=== PATIENT | male | born 1945 | race Caucasian/White ===

== ENCOUNTER → 2016-02-29 | Outpatient (CLI) | payer MEDICARE | LOC: PCVCCLINIC 10:00 | PROVIDERS: ATTEND Internal Medicine | DX: I25.10 Atherosclerotic heart disease of native coronary artery without angina pectoris (principal); Z95.2 Presence of prosthetic heart valve | CPT/HCPCS: 85610 ==

== ENCOUNTER → 2016-04-10 | Outpatient (CLI) | payer MEDICARE | END | disposition home or self-care (01) | LOC: PCVCCLINIC 10:41 | PROVIDERS: ATTEND Internal Medicine | DX: I25.10 Atherosclerotic heart disease of native coronary artery without angina pectoris (principal); Z95.2 Presence of prosthetic heart valve | CPT/HCPCS: 85610 ==

== ENCOUNTER → 2016-04-12 | Outpatient (CLI) | payer MEDICARE | END | disposition home or self-care (01) | LOC: PCVCCLINIC 11:50 | PROVIDERS: ATTEND Internal Medicine | DX: Z95.2 Presence of prosthetic heart valve (principal) | CPT/HCPCS: 85610 ==

== ENCOUNTER → 2016-04-17 | Outpatient (CLI) | payer MEDICARE | END | disposition home or self-care (01) | LOC: PCVCCLINIC 08:50 | PROVIDERS: ATTEND Internal Medicine | DX: Z95.2 Presence of prosthetic heart valve (principal) | CPT/HCPCS: 85610 ==

== ENCOUNTER → 2016-04-24 | Outpatient (CLI) | payer MEDICARE | END | disposition home or self-care (01) | LOC: PCVCCLINIC 09:34 | PROVIDERS: ATTEND Internal Medicine | DX: I25.10 Atherosclerotic heart disease of native coronary artery without angina pectoris (principal); Z95.2 Presence of prosthetic heart valve | CPT/HCPCS: 85610 ==

== ENCOUNTER → 2016-05-01 | Outpatient (CLI) | payer MEDICARE | END | disposition home or self-care (01) | LOC: PCVCCLINIC 09:46 | PROVIDERS: ATTEND Internal Medicine | DX: Z95.2 Presence of prosthetic heart valve (principal) | CPT/HCPCS: 85610; G0463 ==

== ENCOUNTER → 2016-05-15 | Outpatient (CLI) | payer MEDICARE | END | disposition home or self-care (01) | LOC: PCVCCLINIC 09:00 | PROVIDERS: ATTEND Internal Medicine | DX: Z95.2 Presence of prosthetic heart valve (principal); I25.10 Atherosclerotic heart disease of native coronary artery without angina pectoris | CPT/HCPCS: 85610; G0463 ==

== ENCOUNTER → 2016-06-15 | Outpatient (CLI) | payer MEDICARE | END | disposition home or self-care (01) | LOC: PCVCCLINIC 09:00 | PROVIDERS: ATTEND Internal Medicine | DX: Z95.2 Presence of prosthetic heart valve (principal) | CPT/HCPCS: 85610 ==

== ENCOUNTER → 2016-06-23 | Outpatient (CLI) | payer MEDICARE | END | disposition home or self-care (01) | LOC: PCVCCLINIC 08:50 | PROVIDERS: ATTEND Internal Medicine | DX: Z95.2 Presence of prosthetic heart valve (principal) | CPT/HCPCS: 85610 ==

== ENCOUNTER → 2016-07-07 | Outpatient (CLI) | payer MEDICARE | END | disposition home or self-care (01) | LOC: PCVCCLINIC 10:19 | PROVIDERS: ATTEND Internal Medicine | DX: I65.23 Occlusion and stenosis of bilateral carotid arteries (principal); I11.0 Hypertensive heart disease with heart failure; I50.9 Heart failure, unspecified; J44.9 Chronic obstructive pulmonary disease, unspecified; I25.10 Atherosclerotic heart disease of native coronary artery without angina pectoris; E78.00 Pure hypercholesterolemia, unspecified; K21.9 Gastro-esophageal reflux disease without esophagitis; E78.5 Hyperlipidemia, unspecified; C34.90 Malignant neoplasm of unspecified part of unspecified bronchus or lung; Z95.2 Presence of prosthetic heart valve; Z79.01 Long term (current) use of anticoagulants | CPT/HCPCS: 85610; 93005 ==

== ENCOUNTER → 2016-08-02 | Outpatient (CLI) | payer MEDICARE ==
--- NOTE | 2016-08-02 11:14 | PCVCIMAG ---
APPROVED REPORT Patient Location: Out-Patient Indications Stenosis Risk Factors Hypertension: Doppler Spectral Velocity Analysis PSV / EDVPSV / EDV ECA (R) 130 / 17 cm/sECA (L) 75 / 14 cm/s dICA (R) 53 / 20 cm/sdICA (L) 51 / 20 cm/s Nelson (R) 67 / 22 cm/smICA (L) 55 / 19 cm/s pICA (R) 93 / 17 cm/spICA (L) 75 / 24 cm/s Bulb (R) 72 / 21 cm/sBulb (L) 69 / 17 cm/s dCCA (R) 82 / 19 cm/sdCCA (L) 70 / 22 cm/s mCCA (R) 92 / 26 cm/smCCA (L) 85 / 17 cm/s Vert (R) 42 / 9 cm/sVert (L) 72 / 22 cm/s ICA/CCA 1.13ICA/CCA 1.07 Basic Measurements Blood Pressure: Pulses: Right Left RightLeft Brachial(Sitting) 108/22uaRt68/68mmHgTemporal Real Time B-Mode Imaging AreaRight Plaque DescriptionLeft Plaque Description VertebralAntegradeAntegrade Findings The right carotid bulb has moderate calcified plaque. The right proximal internal carotid artery shows <40% stenosis. The right external carotid artery shows no significant stenosis. The left carotid bulb has moderate calcified plaque. The left proximal internal carotid artery shows <40% stenosis. The right external carotid artery shows no significant stenosis. The left carotid bulb has plaque. The left proximal internal carotid artery shows stenosis. The left common carotid artery shows stenosis. The right external carotid artery shows stenosis. Conclusion 1. Right internal carotid artery stenosis (<40%) 2. Left internal carotid artery stenosis (<40%) 3. Antegrade vertebral flow
== END | disposition home or self-care (01) ==
LOC: PCVCIMAG 09:19
PROVIDERS: ATTEND Internal Medicine
DX: I65.23 Occlusion and stenosis of bilateral carotid arteries (principal); I10 Essential (primary) hypertension; I25.5 Ischemic cardiomyopathy; I50.9 Heart failure, unspecified; I25.10 Atherosclerotic heart disease of native coronary artery without angina pectoris; C34.92 Malignant neoplasm of unspecified part of left bronchus or lung; E78.5 Hyperlipidemia, unspecified; Z79.01 Long term (current) use of anticoagulants; Z95.2 Presence of prosthetic heart valve
CPT/HCPCS: 80061; 93005; 93880; G0463

== ENCOUNTER → 2016-08-09 | Outpatient (CLI) | payer MEDICARE | END | disposition home or self-care (01) | LOC: PCVCCLINIC 09:57 | PROVIDERS: ATTEND Internal Medicine | DX: I11.0 Hypertensive heart disease with heart failure (principal); I50.9 Heart failure, unspecified; J44.9 Chronic obstructive pulmonary disease, unspecified; C34.90 Malignant neoplasm of unspecified part of unspecified bronchus or lung; I25.10 Atherosclerotic heart disease of native coronary artery without angina pectoris; E78.00 Pure hypercholesterolemia, unspecified; I65.29 Occlusion and stenosis of unspecified carotid artery; E78.5 Hyperlipidemia, unspecified; Z95.2 Presence of prosthetic heart valve; Z79.01 Long term (current) use of anticoagulants | CPT/HCPCS: 85610 ==

== ENCOUNTER → 2016-08-16 | Outpatient (CLI) | payer MEDICARE | END | disposition home or self-care (01) | LOC: PCVCCLINIC 09:23 | PROVIDERS: ATTEND Internal Medicine | DX: I50.9 Heart failure, unspecified (principal); J44.9 Chronic obstructive pulmonary disease, unspecified; I25.10 Atherosclerotic heart disease of native coronary artery without angina pectoris; E78.00 Pure hypercholesterolemia, unspecified; Z95.2 Presence of prosthetic heart valve | CPT/HCPCS: 85610 ==

== ENCOUNTER → 2017-02-05 | Outpatient (CLI) | payer MEDICARE ==
--- NOTE | 2017-02-05 12:37 | PCVCIMAG ---
APPROVED REPORT Study performed: 02/05/2017 09:32:47 EXAM: Comprehensive 2D, Doppler, and color-flow Echocardiogram Patient Location: Echo lab Status: routine BSA: 1.88 HR: 59 bpmBP: 100/60 mmHg Rhythm: NSR Other Information Study Quality: Adequate Indications CABG, #[address] [place] MVR, Ischemic cardiomyopathy, 2D Dimensions LVEF(%): 49.28 (>50%) IVSd: 10.29 (7-11mm)LVOT Diam: 21.62 (18-24mm) LVDd: 51.13 mm PWd: 12.00 (7-11mm)Ascending Ao: 32.38 (22-36mm) LVDs: 38.31 (25-40mm) Left Atrium: 45.59 (27-40mm) Aortic Root: 27.88 mm Russo's LVEF: 49.28 % Volumes Left Atrial Volume (Systole) Single Plane 4CH: 72.18 mLSingle Plane 2CH: 87.32 mL LA ESV Index: 44.00 mL/m2 Aortic Valve AoV Peak Ra.: 1.39 m/s AO Peak Gr.: 7.70 mmHgLVOT Max P.26 mmHg LVOT Max V: 1.15 m/s RADHA Vmax: 3.03 cm2 Mitral Valve MV Peak Gr.: 8.83 mmHg MV Mean Gr.: 3.61 mmHg MV Decel. Time: 307.28 ms MV Max Ra.: 1.49 m/s MV Mean Ra.: 0.87 m/s MV VTI: 505.13 mm MV PHT: 129.89 ms MVA (PHT): 1.69 cm2 IVRT: 162.63 ms TDI Medial E' Ra.: 0.04 m/s Lateral E' Ra.: 0.08 m/s Pulmonary Valve PV Peak Gr.: 1.72 mmHg Tricuspid Valve TR Peak Ra.: 1.60 m/s TR Peak Gr.: 10.28 mmHg Left Ventricle Left ventricle is mildly dilated. Akinesis of basal to mid inferolateral and inferoseptal kaur There is normal left ventricular wall thickness. Left ventricular systolic function is mild to moderately decreased. LVEF 45%. Unable to assess Right Ventricle The right ventricle is normal size. The right ventricular systolic function is normal. Atria Left atrium is mildly dilated. The right atrium size is normal. Aortic Valve The aortic valve is normal in structure. No aortic regurgitation is present. There is no aortic valvular stenosis. Mitral Valve #29 [facility] Mitral Valve Replacment. Max gradient 8mHg. Mean gradient 4mmHg. There is no mitral valve regurgitation noted. No evidence of mitral valve stenosis. Tricuspid Valve The tricuspid valve is normal in structure. There is no tricuspid valve regurgitation noted. Pulmonic Valve The pulmonary valve is normal in structure. There is no pulmonic valvular regurgitation. Great Vessels The aortic root is normal in size. IVC is normal in size and collapses with >50% inspiration Pericardium There is no pericardial effusion. <Conclusion> Left ventricular systolic function is mild to moderately decreased. Akinesis of basal to mid inferolateral and inferoseptal kaur LVEF 45%. Left atrium is mildly dilated. The aortic valve is normal in structure. No aortic regurgitation or stenosis. #29 [place] mechanical mitral Valve replacment. Max gradient 8mHg. Mean gradient 4mmHg. There is no mitral valve regurgitation noted. Pulmonary artery pressure could not be reliably ascertained There is no pericardial effusion.
== END | disposition home or self-care (01) ==
LOC: PCVCIMAG 09:14
PROVIDERS: ATTEND Internal Medicine
DX: I25.10 Atherosclerotic heart disease of native coronary artery without angina pectoris (principal); I25.5 Ischemic cardiomyopathy; I11.0 Hypertensive heart disease with heart failure; I50.22 Chronic systolic (congestive) heart failure; E78.5 Hyperlipidemia, unspecified; I65.23 Occlusion and stenosis of bilateral carotid arteries; R00.1 Bradycardia, unspecified; R94.31 Abnormal electrocardiogram [ECG] [EKG]; C34.92 Malignant neoplasm of unspecified part of left bronchus or lung; Z95.2 Presence of prosthetic heart valve; Z87.891 Personal history of nicotine dependence; Z79.899 Other long term (current) drug therapy; Z79.82 Long term (current) use of aspirin
CPT/HCPCS: 80061; 93005; 93306; G0463

== ENCOUNTER → 2017-08-08 | Outpatient (CLI) | payer MEDICARE | END | disposition home or self-care (01) | LOC: PCVCIMAG 08:48 | DX: I65.23 Occlusion and stenosis of bilateral carotid arteries (principal); I25.5 Ischemic cardiomyopathy; I11.0 Hypertensive heart disease with heart failure; I50.22 Chronic systolic (congestive) heart failure; E78.5 Hyperlipidemia, unspecified; C34.92 Malignant neoplasm of unspecified part of left bronchus or lung; Z95.2 Presence of prosthetic heart valve; Z79.891 Long term (current) use of opiate analgesic; Z79.899 Other long term (current) drug therapy | CPT/HCPCS: 93005; 93880; G0463 ==

== ENCOUNTER → 2017-12-10 | Outpatient (CLI) | payer MEDICARE | END | disposition home or self-care (01) | LOC: PCVCCLINIC 10:00 | PROVIDERS: ATTEND Internal Medicine | DX: Z51.81 Encounter for therapeutic drug level monitoring (principal); J44.9 Chronic obstructive pulmonary disease, unspecified; I25.10 Atherosclerotic heart disease of native coronary artery without angina pectoris; I50.9 Heart failure, unspecified; E78.00 Pure hypercholesterolemia, unspecified; E78.5 Hyperlipidemia, unspecified; Z95.2 Presence of prosthetic heart valve; Z79.01 Long term (current) use of anticoagulants | CPT/HCPCS: 85610 ==

== ENCOUNTER → 2017-12-14 | Outpatient (CLI) | payer MEDICARE | END | disposition home or self-care (01) | LOC: PCVCCLINIC 09:00 | PROVIDERS: ATTEND Internal Medicine | DX: Z51.81 Encounter for therapeutic drug level monitoring (principal); I11.0 Hypertensive heart disease with heart failure; I50.9 Heart failure, unspecified; I25.10 Atherosclerotic heart disease of native coronary artery without angina pectoris; E78.00 Pure hypercholesterolemia, unspecified; E04.1 Nontoxic single thyroid nodule; Z79.01 Long term (current) use of anticoagulants; Z95.1 Presence of aortocoronary bypass graft | CPT/HCPCS: 85610 ==

== ENCOUNTER → 2018-01-03 | Outpatient (CLI) | payer MEDICARE | END | disposition home or self-care (01) | LOC: PCVCCLINIC 11:24 | PROVIDERS: ATTEND Internal Medicine | DX: Z51.81 Encounter for therapeutic drug level monitoring (principal); I50.9 Heart failure, unspecified; J44.9 Chronic obstructive pulmonary disease, unspecified; I25.10 Atherosclerotic heart disease of native coronary artery without angina pectoris; E78.00 Pure hypercholesterolemia, unspecified; E78.5 Hyperlipidemia, unspecified; E03.9 Hypothyroidism, unspecified; K21.9 Gastro-esophageal reflux disease without esophagitis; Z95.1 Presence of aortocoronary bypass graft; Z85.118 Personal history of other malignant neoplasm of bronchus and lung; Z95.2 Presence of prosthetic heart valve; Z79.01 Long term (current) use of anticoagulants | CPT/HCPCS: 36415; 85610 ==

== ENCOUNTER → 2018-01-10 | Outpatient (CLI) | payer MEDICARE | END | disposition home or self-care (01) | LOC: PCVCCLINIC 13:51 | PROVIDERS: ATTEND Internal Medicine | DX: Z51.81 Encounter for therapeutic drug level monitoring (principal); J44.9 Chronic obstructive pulmonary disease, unspecified; I25.10 Atherosclerotic heart disease of native coronary artery without angina pectoris; E78.00 Pure hypercholesterolemia, unspecified; E78.5 Hyperlipidemia, unspecified; I11.0 Hypertensive heart disease with heart failure; I50.9 Heart failure, unspecified; Z85.118 Personal history of other malignant neoplasm of bronchus and lung; Z95.1 Presence of aortocoronary bypass graft; Z79.01 Long term (current) use of anticoagulants | CPT/HCPCS: 36415; 85610 ==

== ENCOUNTER → 2018-02-07 | Outpatient (CLI) | payer MEDICARE ==
--- NOTE | 2018-02-07 12:40 | PCVCIMAG ---
APPROVED REPORT Study performed: 02/07/2018 09:57:07 EXAM: Comprehensive 2D, Doppler, and color-flow Echocardiogram Patient Location: Echo lab Status: routine BSA: 1.90 HR: 55 bpmBP: 118/70 mmHg Rhythm: NSR Other Information Study Quality: Adequate Risk Factors: Cardiac Risk Factors: Hyperlipidemia Indications CAD Cardiomyopathy CABG, #29 [place] Mitral Valve 2D Dimensions IVSd: 12.95 (7-11mm)LVOT Diam: 20.18 (18-24mm) LVDd: 38.39 mm PWd: 11.59 (7-11mm)Ascending Ao: 30.59 (22-36mm) LVDs: 32.16 (25-40mm) Left Atrium: 46.07 (27-40mm) Aortic Root: 25.16 mm LV Single Plane 4CH: 56.79 % LV Single Plane 2CH: 60.16 % Biplane EF: 58.1 % Volumes Left Atrial Volume (Systole) Single Plane 4CH: 90.29 mLSingle Plane 2CH: 66.18 mL LA ESV Index: 42.00 mL/m2 Aortic Valve AoV Peak Ra.: 1.44 m/s AO Peak Gr.: 8.32 mmHgLVOT Max P.52 mmHg LVOT Max V: 1.06 m/s RADHA Vmax: 2.36 cm2 Mitral Valve MV Peak Gr.: 6.84 mmHg MV Mean Gr.: 2.36 mmHgE/A Ratio: 0.7 MV Decel. Time: 313.89 ms MV E Max Ra.: 0.97 m/s MV A Ra.: 1.31 m/s MV Max Ra.: 1.31 m/s MV Mean Ra.: 0.71 m/s MV VTI: 394.55 mm MV PHT: 106.56 ms MVA (PHT): 2.06 cm2 IVRT: 183.39 ms TDI E/Lateral E': 13.86E/Medial E': 16.17 Medial E' Ra.: 0.06 m/s Lateral E' Ra.: 0.07 m/s Pulmonary Valve PV Peak Gr.: 2.37 mmHg Left Ventricle The left ventricle is normal size. Akinesis basal to mid inferolateral, inferoseptal kaur. There is normal left ventricular wall thickness. Left ventricular systolic function is mildly decreased. LVEF is 45-50%. This study is not technically sufficient to allow evaluation of the LV diastolic function. Right Ventricle The right ventricle is normal size. The right ventricular systolic function is normal. Atria The left atrium size is normal. The right atrium size is normal. Aortic Valve The aortic valve is mildly sclerotic. No aortic regurgitation is present. There is no aortic valvular stenosis. Mitral Valve #29 [place] Mitral Valve Replacement. Peak gradient 7mmHg. Mean 2mmHg. There is no mitral valve regurgitation noted. No evidence of mitral valve stenosis. Tricuspid Valve The tricuspid valve is normal in structure. There is no tricuspid valve regurgitation noted. Pulmonic Valve The pulmonary valve is normal in structure. There is no pulmonic valvular regurgitation. Great Vessels The aortic root is normal in size. IVC is normal in size and collapses >50% with inspiration. Pericardium There is no pericardial effusion. <Conclusion> Left ventricular systolic function is mildly decreased. LVEF is 45-50%. Akinesis basal to mid inferolateral, inferoseptal kaur. The aortic valve is mildly sclerotic. No aortic regurgitation or stenosis #[address] [place] Mitral Valve Replacement. Peak gradient 7mmHg. Mean 2mmHg. No mitral valve regurgitation. Pulmonary artery pressure could not be reliably ascertained There is no pericardial effusion.
== END | disposition home or self-care (01) ==
LOC: PCVCIMAG 10:03
PROVIDERS: ATTEND Internal Medicine
DX: I25.10 Atherosclerotic heart disease of native coronary artery without angina pectoris (principal); I25.5 Ischemic cardiomyopathy; I11.0 Hypertensive heart disease with heart failure; I50.22 Chronic systolic (congestive) heart failure; E78.5 Hyperlipidemia, unspecified; I65.23 Occlusion and stenosis of bilateral carotid arteries; C34.92 Malignant neoplasm of unspecified part of left bronchus or lung; J44.9 Chronic obstructive pulmonary disease, unspecified; K21.9 Gastro-esophageal reflux disease without esophagitis; Z95.2 Presence of prosthetic heart valve; Z79.82 Long term (current) use of aspirin; Z87.891 Personal history of nicotine dependence
CPT/HCPCS: 36415; 80061; 93005; 93306; G0463

== ENCOUNTER → 2018-08-15 | Outpatient (CLI) | payer MEDICARE ==
--- NOTE | 2018-08-15 10:19 | PCVCIMAG ---
APPROVED REPORT Indications Stenosis Risk Factors Hypertension: Hyperlipidemia Doppler Spectral Velocity Analysis PSV / EDVPSV / EDV ECA (R) 99 / 8 cm/sECA (L) 78 / 16 cm/s dICA (R) 55 / 21 cm/sdICA (L) 39 / 8 cm/s Nelson (R) 66 / 18 cm/smICA (L) 96 / 18 cm/s pICA (R) 73 / 17 cm/spICA (L) 65 / 14 cm/s Bulb (R) 69 / 13 cm/sBulb (L) 49 / 13 cm/s dCCA (R) 69 / 16 cm/sdCCA (L) 62 / 16 cm/s mCCA (R) 69 / 17 cm/smCCA (L) 73 / 19 cm/s Vert (R) 43 / 6 cm/sVert (L) 61 / 17 cm/s ICA/CCA 1.06ICA/CCA 1.55 ICA/CCA 1.32 Basic Measurements Blood Pressure: Pulses: Right Left RightLeft Brachial(Sitting) 114/45iqRt448/80mmHgTemporal Real Time B-Mode Imaging Vert. (R)AntegradeVert. (L)Antegrade Findings RIGHT CAROTID: The carotid bulb has moderate plaque. The proximal internal carotid artery shows <40% stenosis. The common carotid artery shows no significant stenosis. The external carotid artery shows no significant stenosis. LEFT CAROTID: The carotid bulb has moderate plaque. The proximal internal carotid artery shows <40% stenosis. The common carotid artery shows no significant stenosis. The external carotid artery shows no significant stenosis. Conclusion <40% stenosis of the right internal carotid artery with moderate plaque. <40% stenosis of the left internal carotid artery with moderate plaque. 1.2 x 1.1 x 2.0 cm solid nodule mid/lower right thyroid lobe unchanged since 2018 study.
== END | disposition home or self-care (01) ==
LOC: PCVCIMAG 09:45
PROVIDERS: ATTEND Internal Medicine
DX: I65.23 Occlusion and stenosis of bilateral carotid arteries (principal); I25.10 Atherosclerotic heart disease of native coronary artery without angina pectoris; I25.5 Ischemic cardiomyopathy; I11.0 Hypertensive heart disease with heart failure; I50.22 Chronic systolic (congestive) heart failure; E78.5 Hyperlipidemia, unspecified; C34.92 Malignant neoplasm of unspecified part of left bronchus or lung; K21.9 Gastro-esophageal reflux disease without esophagitis; Z95.2 Presence of prosthetic heart valve; Z79.82 Long term (current) use of aspirin
CPT/HCPCS: 36415; 80061; 93005; 93880; G0463

== ENCOUNTER → 2019-02-10 | Outpatient (CLI) | payer MEDICARE ==
--- NOTE | 2019-02-10 15:43 | PCVCIMAG ---
APPROVED REPORT Study performed: 02/10/2019 13:54:38 EXAM: Comprehensive 2D, Doppler, and color-flow Echocardiogram Patient Location: Echo lab Room #: 2Status: routine BSA: 1.89 HR: 48 bpm Rhythm: Bradycardia Other Information Study Quality: Fair Risk Factors: Cardiac Risk Factors: HTN Indications Mitral Valve Disease CAD Cardiomyopathy S/P CABG, MV replacement #29 [place] Mechanical valve, #20 [place] SVC repair 2D Dimensions IVSd: 10.66 (7-11mm)LVOT Diam: 18.98 (18-24mm) LVDd: 50.08 mm PWd: 11.92 (7-11mm)Ascending Ao: 20.81 (22-36mm) LVDs: 33.58 (25-40mm) Left Atrium: 56.10 (27-40mm) Aortic Root: 23.01 mm LV Single Plane 4CH: 58.75 % LV Single Plane 2CH: 63.02 % Biplane EF: 60.0 % Volumes Left Atrial Volume (Systole) Single Plane 4CH: 88.93 mLSingle Plane 2CH: 39.51 mL Biplane LA Volume: 60.00 mLLA ESV Index: 31.00 mL/m2 Aortic Valve AoV Peak Ra.: 1.39 m/s AO Peak Gr.: 7.99 mmHgLVOT Max P.41 mmHg LVOT Max V: 1.05 m/s RADHA Vmax: 2.14 cm2 Mitral Valve MV Peak Gr.: 7.45 mmHg MV Mean Gr.: 1.80 mmHgE/A Ratio: 1.0 MV Decel. Time: 273.08 ms MV E Max Ra.: 1.10 m/s MV A Ra.: 1.11 m/s MV Max Ra.: 1.36 m/s MV Mean Ra.: 0.53 m/s MV VTI: 407.60 mm MV PHT: 88.21 ms MVA (PHT): 2.49 cm2 IVRT: 131.49 ms TDI E/Lateral E': 1.83E/Medial E': 22.00 Medial E' Ra.: 0.05 m/s Lateral E' Ra.: 0.60 m/s Pulmonary Valve PV Peak Ra.: 1.02 m/sPV Peak Gr.: 4.13 mmHg Tricuspid Valve TR Peak Ra.: 1.36 m/s TR Peak Gr.: 7.42 mmHg TV Vmax: 0.52 m/sPA Pressure: 14.00 mmHg Left Ventricle The left ventricle is normal size. Hypokinesis of base of inferior wall. Borderline concentric left ventricular hypertrophy. Left ventricular systolic function is at the lower limits of normal. LVEF is 45-50%. This study is not technically sufficient to allow evaluation of the LV diastolic function due to atrial fibrillation. Right Ventricle The right ventricle is normal size. The right ventricular systolic function is normal. Atria Left atrium is dilated. The right atrium size is normal. Aortic Valve Aortic valve is trileaflet, mildly sclerotic, trileaflet. No aortic regurgitation is present. There is no aortic valvular stenosis. Mitral Valve Normally functioning Mechanical #[address] [facility] [place] in the mitral position (peak gradient 7 mm, mean gradient 2 mm) There is no mitral valve regurgitation noted. No evidence of mitral valve stenosis. Tricuspid Valve The tricuspid valve is normal in structure. Trace tricuspid regurgitation. No pulmonary hypertension. Pulmonic Valve The pulmonary valve is normal in structure. There is no pulmonic valvular regurgitation. Great Vessels The aortic root is normal in size. The ascending aorta is normal in size. Aortic arch is not well visualized. IVC is normal in size and collapses >50% with inspiration. Pericardium There is no pericardial effusion. There is no pleural effusion. <Conclusion> Left ventricular systolic function is at the lower limits of normal. Hypokinesis of base of inferior wall. LVEF is 45-50%. Left atrium is dilated. Aortic valve is trileaflet, mildly sclerotic, trileaflet. No aortic regurgitation or stenosis. Normally functioning Mechanical #[address] [facility] [place] in the mitral position (peak gradient 7 mm, mean gradient 2 mm) There is no mitral valve regurgitation. Pulmonary artery systolic pressure could not be reliably ascertained. There is no pericardial effusion.
== END | disposition home or self-care (01) ==
LOC: PCVCIMAG 13:45
PROVIDERS: ATTEND Internal Medicine
DX: I35.8 Other nonrheumatic aortic valve disorders (principal); R94.31 Abnormal electrocardiogram [ECG] [EKG]; C34.92 Malignant neoplasm of unspecified part of left bronchus or lung; I25.10 Atherosclerotic heart disease of native coronary artery without angina pectoris; I11.0 Hypertensive heart disease with heart failure; I50.9 Heart failure, unspecified; E78.5 Hyperlipidemia, unspecified; K21.9 Gastro-esophageal reflux disease without esophagitis; J44.9 Chronic obstructive pulmonary disease, unspecified; E03.9 Hypothyroidism, unspecified; Z79.82 Long term (current) use of aspirin; Z79.899 Other long term (current) drug therapy; Z87.891 Personal history of nicotine dependence; Z82.49 Family history of ischemic heart disease and other diseases of the circulatory system; Z95.2 Presence of prosthetic heart valve; Z95.1 Presence of aortocoronary bypass graft
CPT/HCPCS: 36415; 80061; 93005; 93306; G0463